=== PATIENT | female | born 1975 | race Hispanic/Latino ===

== ENCOUNTER 2019-11-26 21:20 | Emergency (ER) | payer SELFPAY ==
[~2019-11-26] VITALS: Ht 157.5 cm; Wt 78.0 kg
--- NOTE | 2019-11-26 23:31 | Emergency Department Note ---
History of Present Illnes History of Present Illness Chief Complaint: Respiratory History of Present Illness This is a 44 year old female, with no significant past medical history, who pr esents with a one-week history of shortness of breath on exertion. Patient was seen in and urgent care clinic on 11/21/2019 with symptoms of shortness of breath, headache, diarrhea, and fatigue, and was tested for Covid 19. She was also prescribed a Z-Nathen, albuterol inhaler, and Bromfed. Patient took the medication, and has been using one of her children's nebulizers and performing albuterol treatments 3 times per day. She states that these nebulizer treatments do help her shortness of breath, quite a bit. She was informed today that her Covid 19 test from last week was negative. Patient returned to urgent care today for evaluation of persistent shortness of breath on exertion and was evaluated. She was apparently advised to seek ER evaluation for further testing regarding her shortness of breath on exertion. They suggested to her that she might have a pulmonary embolism. Patient denies any chest pain, tightness, heaviness, no pleuritic chest pain, no fever, chills, nausea, or vomiting patient only coughs when she feels short of breath, and like she can't take a deep breath. She has no history of anxiety. She has been exposed to Covid 19 infection by some who had the infection. Patient does not take hormone replacement, smoke, she has no history of blood clots or family history of blood clots, she not had any recent travel or immobility. Historian: Patient Arrival Mode: Car History limited by: language barrier Gum Dipper Required: Yes (Patient's niece translated, at patient's request) Onset (how long ago): week(s) (1) Location: chest Quality: short of breath Radiation: Reports non-radiation Severity: moderate Onset quality: sudden Duration (how long): week(s) (1) Timing of current episode: intermittent Progression: unchanged Chronicity: new Context: Reports recent illness (patient with recent viral/flulike symptoms as described in history of present illness), Reports new medications (see history of present illness for medications started last week); Denies recent immobilization, Denies recent travel, Denies hx of DVT/PE Relieving factors: rest Exacerbating factors: other (exertion. Patient apparently become short of breath when she walks from her garage to her driveway and back. She's apparently typically very active person, without significant physical limitation) Associated symptoms: Reports cough (mild, dry cough, when she feels short of breath), Reports malaise, Reports shortness of breath (only with exertion); Denies chest pain, Denies diaphoresis, Denies fever/chills, Denies nausea/vomiting, Denies weakness Treatments prior to arrival: other (see history of present illness) Risk factors: possible Covid 19 infection Past Medical/Family History Physician Review I have reviewed the patient's past medical and family history. Any updates have been documented here. Past Medical History Recent Fever: No Clinical Suspicion of Infectio: Yes New/Unexplained Change in Ment: No Past Medical History: None Past Surgical History: Cholecysctectomy (past had to minimize) Social History Smoking Cessation: Never Smoker Alcohol Use: None Any Illegal Drug Use: No TB Exposure/Symptoms: No Physically hurt or threatened: No Family History Family history of heart diseas: No Other Any Pre-Existing Lines (PICC,: No Review of Systems Review of Systems Constitutional: Denies chills, Denies fever EENTM: Reports no symptoms Cardiovascular: Denies chest pain, Denies edema, Denies palpitations Respiratory: Reports cough (try an infrequent), Reports dyspnea, Reports dyspnea on exertion; Denies excessive phlegm production, Denies pain with cough Gastrointestinal: Reports diarrhea (2-3 episodes of loose stool per day, without blood or mucus); Denies abdominal pain, Denies nausea, Denies vomiting Genitourinary: Denies dysuria, Denies frequency Musculoskeletal: Reports muscle pain (myalgias); Denies joint pain Integumentary: Denies change in color, Denies rash Neurological: Reports headache (intermittent headaches without photophobia or neuro symptoms); Denies numbness, Denies paresthesia Psychological: Denies anxiety Endocrine: Reports no symptoms Hematological/Lymphatic: Reports no symptoms Review of other systems: All other systems negative Physical Exam Related Data Allergies: Coded Allergies: No Known Drug Allergies (Verified Allergy, Unknown, 11/27/19) Triage Vital Signs Vital Signs Date Time Temp Pulse Resp B/P (MAP) Pulse Ox O2 Delivery O2 Flow Rate FiO2 11/26/19 21:38 98.9 71 18 155/79 98 Vital signs reviewed: Yes Physical Exam CONSTITUTIONAL Constitutional: Present well-developed, Present well-nourished HENT HENT: Present normocephalic, Present atraumatic, Present oropharynx clear/moist, Present nose normal HENT L/R: Present left ext ear normal, Present right ext ear normal EYES Eyes: Reports PERRL, Reports conjunctivae normal NECK Neck: Present ROM normal PULMONARY Pulmonary: Present effort normal, Present other (prolonged expiratory phase); Absent respiratory distress, Absent rales, Absent chest tenderness CARDIOVASCULAR Cardiovascular: Present regular rhythm, Present heart sounds normal, Present capillary refill normal, Present normal rate; Absent murmur GASTROINTESTINAL Abdominal: Present soft, Present nontender, Present bowel sounds normal; Absent distension, Absent tender, Absent guarding GENITOURINARY Genitourinary: Present exam deferred SKIN Skin: Present warm, Present dry; Absent rash MUSCULOSKELETAL Musculoskeletal: Present ROM normal; Absent edema, Absent tenderness NEUROLOGICAL Neurological: Present alert, Present oriented x 3 PSYCHOLOGICAL Psychological: Present mood/affect normal, Present judgement normal Results Laboratory Laboratory Labs: CBC - nl except WBC = 10.9; CMP - nl; BNP - 12.2; Cardiacs - nl except Trop = 0.19; Repeat Trop = nl (new sample, drawn 1 hour later); D-dimer - < 100; Lab results reviewed: Yes Imaging Imaging results reviewed: Yes Impressions [place] [id number] Patient Name: NIMISHA NAILS MR #: [id number] : 1975 Age/Sex: 44/F Req #: [id number] Adm Physician: Ordered by: SMILEY BAKER MD Report #: [id number] Location: [facility] Room/Bed: Procedure: [id number] HOPD/CXR 2 VIEW - HOPD Exam Date: 11/27/19 Exam Time: 0000 REPORT STATUS: Signed EXAMINATION: CXR 2 VIEW - HOPD INDICATION: shortness of breath, PUI COMPARISON: None FINDINGS: TUBES and LINES: None. LUNGS: Lungs are well inflated. Minimal patchy bibasilar opacities. No evidence of lobar pneumonia or pulmonary edema. PLEURA: No pleural effusion or pneumothorax. HEART AND MEDIASTINUM: The cardiomediastinal silhouette is unremarkable. BONES AND SOFT TISSUES: No acute osseous lesion. Soft tissues are unremarkable. UPPER ABDOMEN: No free air under the diaphragm. There are cholecystectomy clips. IMPRESSION: Minimal patchy bibasilar opacities, more likely atelectasis than infection. No evidence of lobar pneumonia. Signed by: Dr. Rosette Jolly MD on 11/27/2019 12:38 AM Dictated By: ROSETTE JOLLY MD Transcribed By: MICHAEL on 11/27/1937 COPY TO: SMILEY BAKER MD~ Diagnostics Tests Diagnostic test(s) reviewed: Yes Procedures 12 Lead ECG Interpretation ECG Interpretation : ECG: ECG 1 Gum Dipper: Interpreted by ED physician Date: Nov 27, 2019 Time: 01:21 Prior ECG tracings: not available for review Rhythm: sinus rhythm (with sinus arrhythmia) Rate: normal (68) QRS axis: normal ST segments normal: Yes T waves normal: Yes Other findings: no other findings Clinical Impression: normal ECG Assessment & Plan Medical Decision Making MDM - Take medications as directed. Use the albuterol in the nebulizer every 4-6 hours as needed for cough and shortness of breath.Treatments further apart, Dipak symptoms improved. - Drink plenty of fluids, especially water. Avoid juices and other concentrated sugars, that can worsen diarrhea. Recommend a BLAND diet, avoiding fried, fatty, fast, and spicy foods. - You may take Imodium AD, as needed for diarrhea. - Return to the emergency room if you develop chest pain, heaviness, worsening in her symptoms or difficulty breathing. Assessment & Plan Final Impression: (1) Acute bronchospasm due to viral infection (2) Suspected COVID-19 virus infection (3) Shortness of breath on exertion (4) Diarrhea Depart Disposition: HOME, SELF-CARE Last Vital Signs Date Time Temp Pulse Resp B/P (MAP) Pulse Ox O2 Delivery O2 Flow Rate FiO2 11/26/19 21:38 98.9 71 18 155/79 98 Home Meds Active Scripts Albuterol Sulfate (ALBUTEROL SULFATE) 0.63 Mg/3 Ml Vial.neb, 1 VIAL INH Q4H PRN for cough and shortness of breath, #28 VIAL 0 Refills Prov:SMILEY BAKER MD 11/27/19 Dexamethasone (DEXAMETHASONE) 4 Mg Tablet, 6 MG PO DAILY for inflammation of lungs for 7 Days, #7 TAB 0 Refills Prov:SMILEY BAKER MD 11/27/19 SMILEY BAKER MD Nov 26, 2019 23:31
--- NOTE | 2019-11-27 00:42 | Diagnostic Imaging Report ---
EXAMINATION: CXR 2 VIEW - HOPD INDICATION: shortness of breath, PUI COMPARISON: None FINDINGS: TUBES and LINES: None. LUNGS: Lungs are well inflated. Minimal patchy bibasilar opacities. No evidence of lobar pneumonia or pulmonary edema. PLEURA: No pleural effusion or pneumothorax. HEART AND MEDIASTINUM: The cardiomediastinal silhouette is unremarkable. BONES AND SOFT TISSUES: No acute osseous lesion. Soft tissues are unremarkable. UPPER ABDOMEN: No free air under the diaphragm. There are cholecystectomy clips. IMPRESSION: Minimal patchy bibasilar opacities, more likely atelectasis than infection. No evidence of lobar pneumonia. Signed by: Dr. Jordi Hernandez MD on 11/27/2019 12:38 AM
[2019-11-27] MEDS ORDERED: DEXAMETHASONE SOD PHOS 10 MG/1 ML VIAL ONE (02:00)
[2019-11-27] MEDS ORDERED: DEXAMETHASONE4 MG PO (02:07)
[2019-11-27] MEDS ORDERED: ALBUTEROL0.63 MG/3 INH (02:15)
[2019-11-27 02:39] VITALS: BP 150/75
[2019-11-27] MEDS ORDERED: DEXAMETHASONE SOD PHOS 10 MG/1 ML VIAL IV ONE (02:45)
== END 2019-11-27 02:30 | disposition home or self-care (01) ==
LOC: FSED 21:27
DX: J98.01 Acute bronchospasm (principal); B34.9 Viral infection, unspecified; R06.02 Shortness of breath; R19.7 Diarrhea, unspecified
CPT/HCPCS: 71046; 80053; 82553; 83880; 84484; 85025; 85379; 93005; 96374; 99283; J1100